=== PATIENT | male | born 1945 | race Caucasian/White ===

== ENCOUNTER 2023-09-19 00:10 | Emergency (ER) | payer SELFPAY ==
[2023-09-19 00:21] LABS: Glucose - Point of Care 133 mg/dl (70-99)
[2023-09-19 00:26] VITALS: BP 162/76
[2023-09-19 01:45] VITALS: BP 143/69
--- NOTE | 2023-09-19 01:55 | ED.GENMED ---
History of Present Illness
General
Chief Complaint: Blood Sugar Problem
Source: patient
Exam Limitations: none
Time Seen by Provider: 09/19/23 00:23
Nursing documentation reviewed up to this point in time: agreed with
History of Present Illness
History of Present Illness:
The patient is a pleasant 77-year-old man with a past medical history of insulin-dependent diabetes, COPD, and CHF who arrives after being found unresponsive by his . His reports that he was recently started on Humalog sliding scale a few
days ago and it seems to be lowering his blood sugar more than expected. She reports that over the last 3 days, his blood sugar has been in the 60s and 70s, which is highly unusual. His reports that she gave him Humalog today as instructed
and he ate a very small dinner this evening consisting of a half a roll, diet yogurt, and a salad. She reports that without checking his blood sugar, she gave him 10 units of Lantus around 10 PM and the patient went to bed. When she went to check
up on him at around 10:30 PM, she could not wake him up. She called 911. When paramedics arrived, they found his sugar to be in the 30s and gave him dextrose which woke him up abruptly. She reports she then gave him a jelly sandwich. Patient has
been fully awake and alert since. He denies any recent chest pain or shortness of breath. His reports that he was recently hospitalized at [facility] for pneumonia. She reports that his primary care doctor is actually coming to their home this
weekend to evaluate him. The patient has no complaints and is asking to go home.
Past History
Past History
ED Past Medical History: Arrthythmia, CHF, COPD and HTN
ED Past Surgical History: Cardiac
Social History
Tobacco: Other
Alcohol: None
Drug: None
Personal:
Living: with family
Employment: Retired
Family History
Family History: Other
Review of Systems
Review of Systems
Allergies reviewed?: Yes
All Other Systems: ROS reviewed and negative except as documented in HPI and ROS
Constitutional: Reports no symptoms
EENT: Reports no symptoms
Respiratory: Reports no symptoms
Cardiac: Reports no symptoms
ABD/GI: Reports no symptoms
: Reports no symptoms
Musculoskeletal: Reports edema
Skin: Reports no symptoms
Neurological: Reports no symptoms
Endocrine: Reports no symptoms
Hematologic/Lymphatic: Reports no symptoms
Psychiatric: Reports no symptoms
Phy Exam
Physical Exam
Physical Exam:
Physical Exam
General: no apparent distress, not acutely ill
Neck: supple.
Heart: s1/s2 regular rate and rhythm,
Lungs: no acute respiratory distress. Speaks in full sentences. No tachypnea. Mild bilateral crackles
Abdomen: normal bowel sounds. not tender. no CVAT
Neuro: alert and oriented. no focal neurological deficits
Skin: no rash
Psychiatric: well kept. interactive and cooperative
Extremities: 2+ pitting edema bilateral lower extremities
Course
Orders/Labs/Results
Orders:
Abnormal Lab Results
09/19/23
00:19
POC Glucose 133 H mg/dl
(70-99)
Vital Signs
Initial and Last Documented VS:
Initial Vital Signs
Temp Pulse Resp BP Pulse Ox
97.4 F 58 20 162/76 99
09/19/23 00:26 09/19/23 00:26 09/19/23 00:26 09/19/23 00:26 09/19/23 00:26
Last Documented Vital Signs
Temp Pulse Resp BP Pulse Ox
97.4 F 78 20 143/69 98
09/19/23 00:26 09/19/23 01:45 09/19/23 01:45 09/19/23 01:45 09/19/23 01:45
MDM/Problems Addressed
Differential Diagnosis Includes:
Encephalopathy due to hypoglycemia, cardiac arrhythmia, acute coronary syndrome
MDM/Problems Addressed:
Patient presents with acute hypoglycemia and unresponsiveness that has been reversed completely with dextrose and eating a sandwich
Chronic conditions affecting care: DM
Acute Exacerbation and/or Progression of Chronic Illness:
Patient's symptoms likely due to his underlying diabetes in which his insulin caused him to become hypoglycemic
Acute Exacerbation and/or Progression of Chronic Illness: DM
*Pulse Oximetry
Patient hypoxic: no
*EKG
Interpreted by ED Provider?: NA
*D[employer] Interpretation
Rate: normal
Interpretation: normal
Rhythm: sinus
*Critical Care Note
Total Time (30-74mins, 75-104mins- exclusive of procedures): Not Applicable
Data Reviewed
Source: patient, spouse and family (Son)
Patient Management
Social determinants of health affecting care: Living situation and Strong social support
Escalation/DeEscalation of care consider admission/obs:
Patient remains well and comfortable. He denies any cough and fever. He denies chest pain and shortness of breath. I do not think we need to do emergent blood work given that his symptoms were readily reversed with dextrose and a jelly sandwich,
especially in the setting of the patient just being started on Humalog and his giving him Lantus without checking his blood sugar first. It is highly unlikely patient had a cardiac arrhythmia because he has had no recent chest pain and
shortness of breath and his unresponsiveness was very much explained by his hypoglycemia in the 30s. Patient really wants to go home which I think is reasonable. He will go home with both his son and will watch him throughout the night. His
reports that his primary care doctor will evaluate him in the morning so he will have close follow-up to discuss Humalog and blood sugar control. In addition, I did tell the that she should talk to the primary care doctor about increasing
his diuretic dose given that he does have fine crackles and pitting edema in legs bilaterally.
ED Attending Note
-
Portions of this chart may have been created with voice recognition software.� Occasional wrong word or��sound alike� substitutions may have occurred due to the inherent limitations of voice recognition software.
Discharge Plan
Departure
Patient Disposition: Home (Routine Discharge)
Date of Disposition: 09/19/23
Time of Disposition: 01:45
Patient with high blood pressure during this ER visit?: Yes
Condition: Good
Covid-19: Not Applicable
Discharge Problem:
Hypoglycemia
Instructions: Low blood sugar in people with diabetes
Referrals:
Patrick Hernandez Jr., DO [Family Provider] -
Activity Restrictions/Additional Instructions:
Always make sure your blood sugar is checked before you take a dose of insulin. Please speak to your primary care doctor about increasing your diuretic dose
Interventions
Interventions:
*Risk Screen - Suicide Last Done: 09/19/23 00:28
*General Assessment Last Done: 09/19/23 00:27
*Neglect/Abuse Screening Last Done: 09/19/23 00:27
*ED COVID-19 Vaccine History Last Done: 09/19/23 00:27
*Nursing Disposition Last Done: 09/19/23 02:16
ED- Neurological Assessment Last Done: 09/19/23 00:27
Discharge Date and Time
Print Language: [place]
== END 2023-09-19 02:16 | disposition home or self-care (01) ==
LOC: EMR 00:10
PROVIDERS: EMERGENCY PHYSICIAN Emergency Medicine; FAMILY PHYSICIAN Family Medicine
DX: E11.649 Type 2 diabetes mellitus with hypoglycemia without coma (principal); I11.0 Hypertensive heart disease with heart failure; I50.9 Heart failure, unspecified; J44.9 Chronic obstructive pulmonary disease, unspecified
CPT/HCPCS: 99282; 82962